=== PATIENT | male | born 2000 | race African-American/Black ===

== ENCOUNTER 2021-08-30 12:01 | Emergency (ER) | payer OTHER ==
[~2021-08-30] VITALS: Ht 172.7 cm; Wt 87.7 kg
[2021-08-30] MEDS ORDERED: KETOROLAC 30 MG/ML 1ML VIAL IM ONE (14:55)
[2021-08-30] MEDS ORDERED: KETOROLAC TROMETHAMINE 10 MG TAB PO ONE (15:30)
[2021-08-30 16:04] VITALS: BP 120/61
== END 2021-08-30 16:04 | disposition home or self-care (01) ==
LOC: M ED 12:01
DX: Z04.1 Encounter for examination and observation following transport accident (principal)